=== PATIENT | male | born 1945 | race Caucasian/White ===

== ENCOUNTER 2018-04-19 13:24 | Inpatient (IN) ==
[2018-04-19 14:21] LABS: Basophils # 0.1 10*3/uL (0.0-0.2); Basophils % 0.8 % (0.0-0.8); Eosinophils # 0.5 10*3/uL (0.0-0.87); Eosinophils % 4.5 % (0.00-10.9); Hematocrit 38.5 VOL% (42.0-52.0); Hemoglobin 12.3 GM/DL (14.0-18.0); Lymphocytes # 2.3 10*3/uL (1.4-4.0); Lymphocytes % 22.7 % (21.2-54.2); Mean Corpuscular HGB Conc 31.9 GM/DL (32-36); Mean Corpuscular Hemoglobin 29 PG (27-34); Mean Corpuscular Volume 91.7 FL (87-102); Mean Platelet Volume 10.4 FL (9.6-12.0); Monocytes # 0.8 10*3/uL (0.11-0.8); Monocytes % 7.6 % (1.7-12.7); Neutrophils # 6.6 10*3/uL (1.4-7.4); Neutrophils % 63.4 % (38.7-73.9); Platelet Count 288 T/CUMM (130-400); Red Cell Distribution Width 14.5 % (9.3-17.3); White Blood Count 10.3 T/CUMM (4-12)
[2018-04-19 14:28] LABS: Apearance,Urine CLEAR (Clear); Bilirubin,Urine Negative (Negative); Blood, Urine Negative (Negative); Glucose,Urine (UA) Negative (Negative); Hyaline Casts,Urine 3 /LPF (0-3); Ketones,Urine Negative (Negative); Mucus,Urine Occasional /LPF (Occasional); Nitrite,Urine Negative (Negative); Protein,Urine Negative; RBC,Urine 1 /HPF (0-4); Urine Color Yellow (Yellow); Urine Specific Gravity 1.008 (1.001-1.035); Urine Urobilinogen < 2.0 EU/DL (0.2-1.0); WBC,Urine 2 /HPF (0-6)
[2018-04-19 14:51] LABS: Albumin 3.2 G/DL (3.4-5.0); Bilirubin,Total 1.1 MG/DL (0.2-1.0); Osmolality,Calculated 282.4 MOS/KG (273-304); Potassium 4.8 MMOL/L (3.5-5.1); Total Protein 8.9 G/DL (6.4-8.3)
[2018-04-19] MEDS ORDERED: ONDANSETRON 4 MG/2 ML VIAL IV STA (15:34)
[2018-04-19] MEDS ORDERED: PANTOPRAZOLE 40 MG VIAL IV STA (15:34)
[2018-04-19] MEDS ORDERED: MORPHINE 4 MG/1 ML VIAL IV STA (15:34)
[2018-04-19] MEDS ORDERED: MORPHINE 4 MG/1 ML VIAL ONE (15:43)
[2018-04-19] MEDS ORDERED: ONDANSETRON 4 MG/2 ML VIAL ONE (15:43)
[2018-04-19] MEDS ORDERED: PANTOPRAZOLE 40 MG VIAL IV ONE (15:44)
[2018-04-19 16:59] LABS: Hepatitis A Ab IgM Quant 0.09 Index; Hepatitis A Ab IgM Result Negative (Negative); Hepatitis B Core IgM Quant 0.09 Index; Hepatitis B Core IgM Result Negative (Negative); Hepatitis B Surface Ag Quant 0.25 Index; Hepatitis B Surface Ag Result Negative (Negative); Hepatitis C Virus Ab Quant 0.12 Index; Hepatitis C Virus Ab Result Negative (Negative)
[2018-04-19] MEDS ORDERED: ONDANSETRON 4 MG/2 ML VIAL IV PRN (17:55)
[2018-04-19] MEDS ORDERED: DEXTROSE 50% 25 GM/50 ML VIAL IV PRN ×2 (17:55→17:59)
[2018-04-19] MEDS ORDERED: ACETAMINOPHEN 325 MG TABLET PO PRN (17:55)
[2018-04-19] MEDS ORDERED: MORPHINE 4 MG/1 ML VIAL IV PRN (17:55)
[2018-04-19] MEDS ORDERED: GLUCAGON 1 MG VIAL IM PRN ×2 (17:55→17:59)
[2018-04-19] MEDS: LACTATED RINGERS 1,000 ML IV SCH (20:17)
[2018-04-19] MEDS: PIPERACILLIN/TAZOBACTAM 3,375 MG in SODIUM CHLORIDE 0.9% 100 ML IV SCH (20:35)
[2018-04-20] MEDS: ALBUTEROL/IPRATROPIUM 3 ML NEB RESP TX SCH ×4 (00:14→19:36)
[2018-04-20] MEDS: LACTATED RINGERS 1,000 ML IV SCH ×3 (04:09→17:30)
[2018-04-20] MEDS: PIPERACILLIN/TAZOBACTAM 3,375 MG in SODIUM CHLORIDE 0.9% 100 ML IV SCH ×3 (05:10→21:08)
[2018-04-20 06:28] LABS: Basophils # 0.1 10*3/uL (0.0-0.2); Basophils % 0.6 % (0.0-0.8); Eosinophils # 0.3 10*3/uL (0.0-0.87); Eosinophils % 3.8 % (0.00-10.9); Hematocrit 34.7 VOL% (42.0-52.0); Hemoglobin 11.2 GM/DL (14.0-18.0); Immature Granulocytes % 1.4 %; Immature Granulocytes Absolute 0.11 #; Lymphocytes # 1.5 10*3/uL (1.4-4.0); Lymphocytes % 19.5 % (21.2-54.2); Mean Corpuscular HGB Conc 32.3 GM/DL (32-36); Mean Corpuscular Hemoglobin 29 PG (27-34); Mean Corpuscular Volume 90.6 FL (87-102); Mean Platelet Volume 10.2 FL (9.6-12.0); Monocytes # 0.7 10*3/uL (0.11-0.8); Neutrophils # 5.1 10*3/uL (1.4-7.4); Neutrophils % 65.7 % (38.7-73.9); Platelet Count 245 T/CUMM (130-400); Red Blood Count 3.83 MC/CUMM (3.8-5.5); Red Cell Distribution Width 14.3 % (9.3-17.3); White Blood Count 7.8 T/CUMM (4-12)
[2018-04-20 07:04] LABS: Albumin 2.8 G/DL (3.4-5.0); Bilirubin,Total 1.5 MG/DL (0.2-1.0); Calcium 9.6 MG/DL (8.5-10.1); Osmolality,Calculated 278.7 MOS/KG (273-304); Potassium 3.5 MMOL/L (3.5-5.1); Total Protein 8.4 G/DL (6.4-8.3)
[2018-04-20 07:45] LABS: Risk Ratio 8.05; VLDL CHOLESTEROL 44.8 MG/DL
[2018-04-20] MEDS: PANTOPRAZOLE 40 MG TABLET PO SCH (08:10)
[2018-04-20] MEDS ORDERED: LORATADINE 10 MG TABLET PO PRN (17:29)
[2018-04-20] MEDS: GABAPENTIN 300 MG CAPSULE PO SCH (21:09)
[2018-04-20] MEDS: levETIRAcetam 500 MG TABLET PO SCH (21:09)
[2018-04-21] MEDS: ALBUTEROL/IPRATROPIUM 3 ML NEB RESP TX SCH ×4 (00:30→19:34)
[2018-04-21] MEDS: LACTATED RINGERS 1,000 ML IV SCH ×5 (02:13→20:29)
[2018-04-21] MEDS: PIPERACILLIN/TAZOBACTAM 3,375 MG in SODIUM CHLORIDE 0.9% 100 ML IV SCH ×3 (03:57→20:35)
[2018-04-21] MEDS: ASPIRIN EC 325 MG TABLET PO SCH (10:06)
[2018-04-21] MEDS: levETIRAcetam 500 MG TABLET PO SCH ×2 (10:06→22:25)
[2018-04-21] MEDS: PANTOPRAZOLE 40 MG TABLET PO SCH (10:06)
[2018-04-21] MEDS: ALLOPURINOL 300 MG TABLET PO SCH (10:06)
[2018-04-21] MEDS: METOPROLOL SUCCINATE XL 50 MG TABLET PO SCH (10:06)
[2018-04-21] MEDS: SERTRALINE 100 MG TABLET PO SCH (10:06)
[2018-04-21] MEDS: GABAPENTIN 300 MG CAPSULE PO SCH ×2 (10:06→22:25)
[2018-04-21] MEDS ORDERED: BISACODYL 5 MG TABLET PO ONE (12:00)
[2018-04-21] MEDS ORDERED: POLYETHYLENE GLYCOL POWDER 255 GM BOTTLE PO ONE (18:00)
[2018-04-21] MEDS ORDERED: BISACODYL 5 MG TABLET ONE (18:27)
[2018-04-22] MEDS: ALBUTEROL/IPRATROPIUM 3 ML NEB RESP TX SCH ×4 (00:23→19:13)
[2018-04-22 04:01] LABS: Hematocrit 32.1 VOL% (42.0-52.0); Hemoglobin 10.1 GM/DL (14.0-18.0)
[2018-04-22] MEDS: PIPERACILLIN/TAZOBACTAM 3,375 MG in SODIUM CHLORIDE 0.9% 100 ML IV SCH ×3 (04:09→23:47)
[2018-04-22 04:10] LABS: INR 1.1
[2018-04-22] MEDS ORDERED: MAGNESIUM CITRATE 300 ML BOTTLE PO ONE (06:03)
[2018-04-22] MEDS: LACTATED RINGERS 1,000 ML IV SCH ×3 (07:27→22:45)
[2018-04-22] MEDS: METOPROLOL SUCCINATE XL 50 MG TABLET PO SCH (09:25)
[2018-04-22] MEDS: PANTOPRAZOLE 40 MG TABLET PO SCH (09:25)
[2018-04-22] MEDS: GABAPENTIN 300 MG CAPSULE PO SCH ×2 (11:16→20:38)
[2018-04-22] MEDS: ASPIRIN EC 325 MG TABLET PO SCH (11:16)
[2018-04-22] MEDS: levETIRAcetam 500 MG TABLET PO SCH ×2 (11:16→20:38)
[2018-04-22] MEDS: ALLOPURINOL 300 MG TABLET PO SCH (11:17)
[2018-04-22] MEDS: SERTRALINE 100 MG TABLET PO SCH (11:17)
[2018-04-22] MEDS ORDERED: LIDOCAINE 100 MG/5 ML SYRINGE ONE (13:07)
[2018-04-22] MEDS ORDERED: PROPOFOL 200 MG/20 ML VIAL IV ONE (13:07)
[2018-04-23] MEDS: ALBUTEROL/IPRATROPIUM 3 ML NEB RESP TX SCH ×2 (01:31→06:55)
[2018-04-23 05:58] LABS: Basophils # 0.1 10*3/uL (0.0-0.2); Basophils % 0.8 % (0.0-0.8); Eosinophils # 0.4 10*3/uL (0.0-0.87); Eosinophils % 4.9 % (0.00-10.9); Hemoglobin 9.6 GM/DL (14.0-18.0); Immature Granulocytes % 0.9 %; Immature Granulocytes Absolute 0.08 #; Lymphocytes # 1.5 10*3/uL (1.4-4.0); Lymphocytes % 18.2 % (21.2-54.2); Mean Corpuscular Hemoglobin 29 PG (27-34); Mean Corpuscular Volume 94.2 FL (87-102); Mean Platelet Volume 10.3 FL (9.6-12.0); Monocytes # 0.7 10*3/uL (0.11-0.8); Monocytes % 7.8 % (1.7-12.7); Neutrophils # 5.7 10*3/uL (1.4-7.4); Neutrophils % 67.4 % (38.7-73.9); Platelet Count 264 T/CUMM (130-400); Red Blood Count 3.29 MC/CUMM (3.8-5.5); Red Cell Distribution Width 14.6 % (9.3-17.3); White Blood Count 8.4 T/CUMM (4-12)
[2018-04-23 06:29] LABS: Albumin 2.6 G/DL (3.4-5.0); Bilirubin,Total 0.6 MG/DL (0.2-1.0); Osmolality,Calculated 285.1 MOS/KG (273-304); Potassium 4.1 MMOL/L (3.5-5.1); Total Protein 7.7 G/DL (6.4-8.3)
[2018-04-23 06:31] LABS: Calcium 9.1 MG/DL (8.5-10.1); Free T4 (Free Thyroxine) 0.97 NG/DL (0.76-1.46); Osmolality,Calculated 282.3 MOS/KG (273-304)
[2018-04-23] MEDS: ALLOPURINOL 300 MG TABLET PO SCH (09:21)
[2018-04-23] MEDS: METOPROLOL SUCCINATE XL 50 MG TABLET PO SCH (09:21)
[2018-04-23] MEDS: GABAPENTIN 300 MG CAPSULE PO SCH (09:21)
[2018-04-23] MEDS: SERTRALINE 100 MG TABLET PO SCH (09:21)
[2018-04-23] MEDS: levETIRAcetam 500 MG TABLET PO SCH (09:21)
[2018-04-23] MEDS: PIPERACILLIN/TAZOBACTAM 3,375 MG in SODIUM CHLORIDE 0.9% 100 ML IV SCH (09:21)
[2018-04-23] MEDS: ASPIRIN EC 325 MG TABLET PO SCH (09:21)
[2018-04-23] MEDS: PANTOPRAZOLE 40 MG TABLET PO SCH (09:21)
[2018-04-23] MEDS ORDERED: FUROSEMIDE 40 MG/4 ML VIAL IV ONE (09:24)
[2018-04-23 11:50] VITALS: BP 148/96
[2018-04-23] MEDS: LACTATED RINGERS 1,000 ML IV SCH (17:22)
== END 2018-04-23 14:10 | disposition home or self-care (01) | DRG 378 ==
LOC: N.ED 13:24 → SUATTDRO 17:55 → N.EDINP 17:55 → N.3E 18:57
PROVIDERS: ADMIT Surgery; ATTEND Hospitalist

== ENCOUNTER 2020-07-03 08:46 | Inpatient (IN) ==
[2020-06-27 11:20] LABS: Basophils # 0.1 10*3/uL (0.0-0.2); Eosinophils # 0.4 10*3/uL (0.0-0.87); Eosinophils % 4.2 % (0.00-10.9); Hemoglobin 11.9 GM/DL (14.0-18.0); Lymphocytes % 28.2 % (21.2-54.2); Mean Corpuscular HGB Conc 33.1 GM/DL (32-36); Mean Corpuscular Volume 91.4 FL (87-102); Mean Platelet Volume 10.1 FL (9.6-12.0); Monocytes % 9.3 % (1.7-12.7); Neutrophils % 56.3 % (38.7-73.9); Platelet Count 218 T/CUMM (130-400); Red Blood Count 3.94 MC/CUMM (3.8-5.5); Red Cell Distribution Width 13.4 % (9.3-17.3); White Blood Count 10.5 T/CUMM (4-12)
[2020-06-27 11:36] LABS: Calcium 9.4 MG/DL (8.5-10.1); Osmolality,Calculated 282.5 MOS/KG (273-304)
[2020-07-03] MEDS ORDERED: LACTATED RINGERS 1,000 ML IV SCH (10:00)
[2020-07-03] MEDS ORDERED: ERTAPENEM 1,000 MG in SODIUM CHLORIDE 0.9% 100 ML IV ONE (10:00)
[2020-07-03] MEDS ORDERED: ALVIMOPAN 12 MG CAPSULE PO STA (10:01)
[2020-07-03] MEDS ORDERED: GABAPENTIN 400 MG CAPSULE PO ONE (10:50)
[2020-07-03] MEDS ORDERED: ACETAMINOPHEN 500 MG TABLET PO ONE (10:50)
[2020-07-03] MEDS ORDERED: DIAZEPAM 5 MG TABLET PO ONE (10:50)
[2020-07-03] MEDS ORDERED: FAMOTIDINE 20 MG TABLET PO ONE (10:50)
[2020-07-03] MEDS ORDERED: TISSUE ADHESIVE 1 EACH APPLICATOR TOP ONE ×2 (11:12→15:21)
[2020-07-03] MEDS ORDERED: INDOCYANINE GREEN 25 MG VIAL IV ONE (11:12)
[2020-07-03] MEDS ORDERED: BUPIVACAINE MPF 0.25% 30 ML VIAL ONE (11:29)
[2020-07-03] MEDS ORDERED: LIDOCAINE 1% 5 ML VIAL ONE (11:30)
[2020-07-03] MEDS ORDERED: DEXAMETHASONE 4 MG/1 ML VIAL ONE (11:30)
[2020-07-03] MEDS ORDERED: EPINEPHrine 1 MG/ML VIAL ONE (11:30)
[2020-07-03] MEDS ORDERED: fentaNYL 100 MCG/2 ML VIAL ONE (12:11)
[2020-07-03] MEDS ORDERED: MIDAZOLAM 2 MG/2 ML VIAL ONE (12:11)
[2020-07-03] MEDS ORDERED: ACETAMINOPHEN 1,000 MG/100 ML VIAL IV ONE (14:17)
[2020-07-03] MEDS ORDERED: LIDOCAINE 2% 5 ML VIAL ONE (14:17)
[2020-07-03] MEDS ORDERED: SEVOFLURANE 1 UNIT/15 MINUTE INH ONE ×10 (14:17→14:53)
[2020-07-03] MEDS ORDERED: ONDANSETRON 4 MG/2 ML VIAL ONE ×2 (14:17→16:08)
[2020-07-03] MEDS ORDERED: ROCURONIUM 50 MG/5 ML VIAL IV ONE (14:17)
[2020-07-03] MEDS ORDERED: LACTATED RINGERS 1,000 ML IV ONE (14:17)
[2020-07-03] MEDS ORDERED: propofoL 200 MG/20 ML VIAL IV ONE (14:17)
[2020-07-03] MEDS ORDERED: SUCCINYLCHOLINE 200 MG/10 ML VIAL ONE (14:17)
[2020-07-03] MEDS ORDERED: NEOSTIGMINE 10 MG/10 ML VIAL ONE (14:22)
[2020-07-03] MEDS ORDERED: GLYCOPYRROLATE 0.4 MG/2 ML VIAL ONE (14:22)
[2020-07-03] MEDS ORDERED: PHENYLEPHRINE 1 MG/10 ML SYRINGE IV ONE (15:08)
[2020-07-03] MEDS ORDERED: ONDANSETRON 4 MG/2 ML VIAL IV PRN ×2 (16:06→17:04)
[2020-07-03] MEDS ORDERED: HYDROmorphone 2 MG/1 ML VIAL ONE (16:08)
[2020-07-03] MEDS: HYDROmorphone 2 MG/1 ML VIAL IV PRN ×3 (16:11→16:34)
[2020-07-03] MEDS ORDERED: HYDROmorphone 2 MG/1 ML VIAL IV PRN (17:04)
[2020-07-03 18:07] LABS: Basophils # 0.1 10*3/uL (0.0-0.2); Basophils % 0.3 % (0.0-0.8); Eosinophils # 0.1 10*3/uL (0.0-0.87); Eosinophils % 0.4 % (0.00-10.9); Hematocrit 36.1 VOL% (42.0-52.0); Hemoglobin 11.9 GM/DL (14.0-18.0); Immature Granulocytes % 0.6 %; Immature Granulocytes Absolute 0.08 #; Lymphocytes # 1.2 10*3/uL (1.4-4.0); Lymphocytes % 8.5 % (21.2-54.2); Mean Corpuscular Volume 93.3 FL (87-102); Mean Platelet Volume 9.7 FL (9.6-12.0); Monocytes % 5.9 % (1.7-12.7); Neutrophils % 84.3 % (38.7-73.9); Platelet Count 212 T/CUMM (130-400); Red Blood Count 3.87 MC/CUMM (3.8-5.5); Red Cell Distribution Width 13.8 % (9.3-17.3); White Blood Count 14.4 T/CUMM (4-12)
[2020-07-03 18:38] LABS: Calcium 9.2 MG/DL (8.5-10.1)
[2020-07-03] MEDS: LACTATED RINGERS 1,000 ML IV SCH (18:39)
[2020-07-03] MEDS: GABAPENTIN 300 MG CAPSULE PO SCH (20:43)
[2020-07-03] MEDS: MULTIVITAMIN (CENTRUM) TABLET PO SCH (20:44)
[2020-07-03] MEDS: levETIRAcetam 250 MG TABLET PO SCH (20:44)
[2020-07-03] MEDS: METOPROLOL SUCCINATE XL 100 MG TABLET PO SCH (20:44)
[2020-07-03] MEDS: ALVIMOPAN 12 MG CAPSULE PO SCH (20:44)
[2020-07-04 05:54] LABS: Basophils # 0.1 10*3/uL (0.0-0.2); Basophils % 0.3 % (0.0-0.8); Eosinophils % 0.2 % (0.00-10.9); Hematocrit 32.6 VOL% (42.0-52.0); Hemoglobin 10.7 GM/DL (14.0-18.0); Immature Granulocytes % 0.7 %; Immature Granulocytes Absolute 0.12 #; Lymphocytes # 2.7 10*3/uL (1.4-4.0); Lymphocytes % 14.8 % (21.2-54.2); Mean Corpuscular HGB Conc 32.8 GM/DL (32-36); Mean Corpuscular Volume 91.8 FL (87-102); Mean Platelet Volume 9.7 FL (9.6-12.0); Monocytes % 8.6 % (1.7-12.7); Neutrophils % 75.4 % (38.7-73.9); Platelet Count 240 T/CUMM (130-400); Red Blood Count 3.55 MC/CUMM (3.8-5.5); Red Cell Distribution Width 13.8 % (9.3-17.3)
[2020-07-04] MEDS: LACTATED RINGERS 1,000 ML IV SCH (05:58)
[2020-07-04 06:19] LABS: Calcium 9.3 MG/DL (8.5-10.1); Osmolality,Calculated 278.8 MOS/KG (273-304)
[2020-07-04] MEDS ORDERED: ASPIRIN EC 325 MG TABLET PO SCH (09:00)
[2020-07-04] MEDS ORDERED: [UNRECOGNIZED DRUG - MIXTURE] PO SCH (09:00)
[2020-07-04] MEDS ORDERED: ASCORBIC ACID 500 MG TABLET PO SCH (09:00)
[2020-07-04] MEDS ORDERED: SERTRALINE 50 MG TABLET PO SCH (09:00)
[2020-07-04] MEDS ORDERED: MAGNESIUM OXIDE 400 MG TABLET PO SCH (09:00)
[2020-07-04] MEDS ORDERED: CHOLECALCIFEROL 1,000 UNIT TABLET PO SCH (09:00)
[2020-07-04] MEDS ORDERED: LORATADINE 10 MG TABLET PO SCH (09:00)
[2020-07-04] MEDS ORDERED: FERROUS SULFATE 325 MG TABLET PO SCH (09:00)
[2020-07-04] MEDS ORDERED: ENOXAPARIN 40 MG/0.4 ML SYRINGE SUBCUT SCH (09:00)
[2020-07-04] MEDS: ALVIMOPAN 12 MG CAPSULE PO SCH (09:07)
[2020-07-04] MEDS: levETIRAcetam 250 MG TABLET PO SCH (09:08)
[2020-07-04] MEDS: MULTIVITAMIN (CENTRUM) TABLET PO SCH (09:08)
[2020-07-04] MEDS: GABAPENTIN 300 MG CAPSULE PO SCH (09:09)
[2020-07-04] MEDS: METOPROLOL SUCCINATE XL 100 MG TABLET PO SCH (09:09)
[2020-07-04 11:39] VITALS: BP 127/68
[2020-07-04 12:16] LABS: Hematocrit 34.4 VOL% (42.0-52.0)
== END 2020-07-04 14:30 | disposition home or self-care (01) | DRG 331 ==
LOC: N.OR 08:46 → N.SDSINP 08:48 → N.3E 16:55
PROVIDERS: ADMIT Surgery; ATTEND Surgery

== ENCOUNTER 2022-01-23 14:28 | Observation (INO) ==
[2022-01-23 16:30] LABS: Basophils # 0.1 10*3/uL (0.0-0.2); Eosinophils # 0.4 10*3/uL (0.0-0.87); Eosinophils % 4.4 % (0.00-10.9); Hematocrit 37.4 VOL% (42.0-52.0); Hemoglobin 11.7 GM/DL (14.0-18.0); Immature Granulocytes % 0.7 %; Immature Granulocytes Absolute 0.07 #; Lymphocytes % 19.9 % (21.2-54.2); Mean Corpuscular HGB Conc 31.3 GM/DL (32-36); Mean Corpuscular Volume 95.2 FL (87-102); Mean Platelet Volume 10.3 FL (9.6-12.0); Monocytes # 0.8 10*3/uL (0.11-0.8); Monocytes % 8.5 % (1.7-12.7); Neutrophils % 65.5 % (38.7-73.9); Platelet Count 255 T/CUMM (130-400); Red Blood Count 3.93 MC/CUMM (3.8-5.5); White Blood Count 9.8 T/CUMM (4-12)
[2022-01-23 16:35] LABS: Alanine Aminotransferase 125 U/L (16-61); Albumin 4.3 G/DL (3.4-5.0); Alkaline Phosphatase 152 U/L (45-117); Aspartate Amino Transferase 40 U/L (0-37); Bilirubin,Total < 0.39 MG/DL (0.20-1.00); Blood Urea Nitrogen 44 MG/DL (7-18); Calcium 10.5 MG/DL (8.5-10.1); Carbon Dioxide 26 MMOL/L (21-32); Chloride 104 MMOL/L (98-107); Glucose 182 MG/DL (74-106); Osmolality,Calculated 288.8 MOS/KG (273-304); Potassium 4.5 MMOL/L (3.5-5.1); Sodium 137 MMOL/L (136-145); Total Protein 8.2 G/DL (6.4-8.2)
[2022-01-23 16:37] LABS: INR 1.1; PT Patient Result 11.8 SECS (10.5-12.0)
[2022-01-23 16:55] LABS: Hyaline Casts,Urine 25 /LPF (0-3); Mucus,Urine Occasional /LPF (Occasional); RBC,Urine <1 /HPF (0-4); Squamous Epithelial Cell,Urine Occasional /HPF (0-10)
[2022-01-23 16:57] LABS: Bilirubin,Urine Negative (Negative); Blood, Urine Negative (Negative); Glucose,Urine (UA) Negative (Negative); Ketones,Urine Negative (Negative); Nitrite,Urine Negative (Negative); Protein,Urine 30 mg/dL (Negative); Urine Appearance Clear (Clear); Urine Color Yellow (Yellow); Urine Urobilinogen 0.2 eU/dL (<2.0); Urine pH 5.5 (4.5-8.0)
[2022-01-23] MEDS ORDERED: SODIUM CHLORIDE 0.9% 500 ML IV STA (17:26)
[2022-01-23] MEDS ORDERED: ACETAMINOPHEN 325 MG TABLET PO PRN (18:13)
[2022-01-23] MEDS ORDERED: GLUCAGON 1 MG VIAL IM PRN (18:13)
[2022-01-23] MEDS ORDERED: DEXTROSE 10% 250 ML BAG IV PRN (18:17)
[2022-01-23] MEDS: INSULIN REGULAR 100 UNIT/ML SUBCUT SCH (22:53)
[2022-01-24] MEDS ORDERED: FUROSEMIDE 80 MG TABLET PO PRN (03:40)
[2022-01-24] MEDS ORDERED: BUDESONIDE/FORMOTEROL 160-4.5 INHALER 6 GM INH PRN (03:40)
[2022-01-24] MEDS ORDERED: ALBUTEROL 2.5 MG/3 ML NEB RESP TX PRN (03:44)
[2022-01-24 04:46] LABS: Basophils # 0.1 10*3/uL (0.0-0.2); Basophils % 0.8 % (0.0-0.8); Eosinophils # 0.5 10*3/uL (0.0-0.87); Eosinophils % 5.8 % (0.00-10.9); Hematocrit 35.2 VOL% (42.0-52.0); Hemoglobin 11.3 GM/DL (14.0-18.0); Immature Granulocytes % 0.5 %; Immature Granulocytes Absolute 0.04 #; Lymphocytes # 2.4 10*3/uL (1.4-4.0); Lymphocytes % 29.5 % (21.2-54.2); Mean Corpuscular HGB Conc 32.1 GM/DL (32-36); Mean Corpuscular Volume 94.1 FL (87-102); Mean Platelet Volume 10.2 FL (9.6-12.0); Monocytes # 0.9 10*3/uL (0.11-0.8); Monocytes % 10.4 % (1.7-12.7); Platelet Count 191 T/CUMM (130-400); Red Blood Count 3.74 MC/CUMM (3.8-5.5); Red Cell Distribution Width 13.8 % (9.3-17.3); White Blood Count 8.3 T/CUMM (4-12)
[2022-01-24 05:10] LABS: Alanine Aminotransferase 92 U/L (16-61); Albumin 3.4 G/DL (3.4-5.0); Alkaline Phosphatase 125 U/L (45-117); Aspartate Amino Transferase 30 U/L (0-37); Bilirubin,Total < 0.39 MG/DL (0.20-1.00); Blood Urea Nitrogen 40 MG/DL (7-18); Calcium 10.3 MG/DL (8.5-10.1); Carbon Dioxide 26 MMOL/L (21-32); Chloride 106 MMOL/L (98-107); Glucose 164 MG/DL (74-106); Osmolality,Calculated 290.5 MOS/KG (273-304); Potassium 3.8 MMOL/L (3.5-5.1); Sodium 139 MMOL/L (136-145); Total Protein 7.5 G/DL (6.4-8.2)
[2022-01-24] MEDS: INSULIN REGULAR 100 UNIT/ML SUBCUT SCH ×2 (07:55→11:27)
[2022-01-24] MEDS ORDERED: VITAMIN E 400 UNIT CAPSULE PO SCH (09:00)
[2022-01-24] MEDS ORDERED: OMEGA 3 ACID ETHYL ESTERS 1 GM CAPSULE PO SCH (09:00)
[2022-01-24] MEDS ORDERED: CHOLECALCIFEROL 1,000 UNIT TABLET PO SCH (09:00)
[2022-01-24] MEDS ORDERED: ASCORBIC ACID 500 MG TABLET PO SCH (09:00)
[2022-01-24] MEDS ORDERED: ROSUVASTATIN 20 MG TABLET PO SCH (09:00)
[2022-01-24] MEDS ORDERED: allopurinoL 300 MG TABLET PO SCH (09:00)
[2022-01-24] MEDS ORDERED: LOSARTAN 50 MG TABLET PO SCH (09:00)
[2022-01-24] MEDS ORDERED: TAMSULOSIN 0.4 MG CAPSULE PO SCH (09:00)
[2022-01-24] MEDS ORDERED: ASPIRIN EC 81 MG TABLET PO SCH (09:00)
[2022-01-24] MEDS ORDERED: GABAPENTIN 300 MG CAPSULE PO SCH (09:00)
[2022-01-24] MEDS ORDERED: FERROUS SULFATE 325 MG TABLET PO SCH (09:00)
[2022-01-24] MEDS ORDERED: COENZYME Q10 100 MG CAPSULE PO SCH (09:00)
[2022-01-24] MEDS ORDERED: CYANOCOBALAMIN 500 MCG TABLET PO SCH (09:00)
[2022-01-24] MEDS ORDERED: MULTIVITAMIN (OCUVITE) TABLET PO SCH (09:00)
[2022-01-24] MEDS ORDERED: TICAGRELOR 90 MG TABLET PO SCH (09:00)
[2022-01-24] MEDS ORDERED: METOPROLOL SUCCINATE XL 100 MG TABLET PO SCH (09:00)
[2022-01-24] MEDS ORDERED: MAGNESIUM OXIDE 400 MG TABLET PO SCH (09:00)
[2022-01-24] MEDS ORDERED: LORATADINE 10 MG TABLET PO SCH (09:00)
[2022-01-24 11:06] VITALS: BP 140/74
[2022-01-24] MEDS ORDERED: CLOPIDOGREL 75 MG TABLET PO SCH (12:00)
[2022-01-24] MEDS ORDERED: SERTRALINE 50 MG TABLET PO SCH (21:00)
== END 2022-01-24 14:45 | disposition home or self-care (01) ==
LOC: N.TELEN 14:28 → N.ED 14:28 → N.TELEN 20:26
PROVIDERS: ADMIT Hospitalist; ATTEND Hospitalist